=== PATIENT | female | born 1975 | race Asian ===

== ENCOUNTER → 2016-06-01 | Outpatient (CLI) | payer MEDICAID | END | disposition home or self-care (01) | LOC: PETCFH 11:57 | PROVIDERS: ATTEND Internal Medicine Hematology & Oncology | DX: C50.411 Malignant neoplasm of upper-outer quadrant of right female breast (principal) | CPT/HCPCS: 78306; A9503 ==

== ENCOUNTER 2016-06-08 09:01 | Day surgery (SDC) | payer MEDICAID ==
[~2016-06-08] VITALS: Ht 165.1 cm; Wt 67.5 kg
[~2016-06-08 09:01] MED LIST: BUPIVACAINE/PF-EPI 0.5% 1:200K ONE
[2016-06-08] MEDS ORDERED: LACTATED RINGERS 1,000 ML IV SCH (09:55)
[2016-06-08 10:04] VITALS: BP 106/69
[2016-06-08 10:04] LABS: HCG UR OBC PASS
[2016-06-08] MEDS ORDERED: SCOPOLAMINE PATCH, 1.5MG PATCH.TD72 TD ONE ×2 (10:22→10:30)
[2016-06-08] MEDS ORDERED: FENTANYL PF 100 MCG/2ML ONE ×2 (12:10→13:43)
[2016-06-08] MEDS ORDERED: MIDAZOLAM 1 MG/ML, 2ML ONE (12:10)
[2016-06-08] MEDS ORDERED: HEPARIN 1,000 UNITS/ML, 10ML ONE ×2 (12:27→13:19)
[2016-06-08] MEDS ORDERED: ONDANSETRON 2MG/ML, 2ML ONE (12:36)
[2016-06-08] MEDS ORDERED: CEFAZOLIN 1,000 MG ONE (12:36)
[2016-06-08] MEDS ORDERED: DEXAMETHASONE 4 MG/ML, 1ML ONE (12:36)
[2016-06-08] MEDS ORDERED: PROPOFOL 10 MG/ML, 20ML ONE (12:36)
[2016-06-08] MEDS ORDERED: HYDROcodone/APAP 7.5-325MG/15ML UDC PO PRN (13:00)
[2016-06-08] MEDS ORDERED: ALBUTEROL SULFATE 2.5 MG/3 ML NPPB PRN (13:00)
[2016-06-08] MEDS ORDERED: METOPROLOL 1 MG/ML, 5ML IV PRN (13:00)
[2016-06-08] MEDS ORDERED: LABETALOL 5MG/ML, 20ML IV PRN (13:00)
[2016-06-08] MEDS ORDERED: hydrALAzine 20 MG/ML, 1ML IV PRN (13:00)
[2016-06-08] MEDS ORDERED: ONDANSETRON 2MG/ML, 2ML IVPush PRN (13:00)
[2016-06-08] MEDS ORDERED: EPHEDRINE 50 MG/ML, 1ML IVPush PRN (13:00)
[2016-06-08] MEDS ORDERED: ACETAMINOPHEN 325 MG TABLET PO PRN (13:00)
[2016-06-08] MEDS ORDERED: PROMETHAZINE 25 MG/ML, 1ML IV PRN (13:00)
[2016-06-08] MEDS ORDERED: FENTANYL PF 100 MCG/2ML IV PRN (13:00)
[2016-06-08] MEDS ORDERED: MEPERIDINE/PF 25MG/0.5ML IVPush PRN (13:00)
[2016-06-08] MEDS ORDERED: HYDROcodone/APAP 7.5-325MG/15ML UDC ONE (13:43)
== END 2016-06-08 15:30 | disposition home or self-care (01) ==
LOC: OUT 09:01
PROVIDERS: ATTEND Surgery
DX: C50.411 Malignant neoplasm of upper-outer quadrant of right female breast (principal); Z90.11 Acquired absence of right breast and nipple; Z80.3 Family history of malignant neoplasm of breast
CPT/HCPCS: 36561; 77001; 81025; J0690; J1100; J1644; J2250; J2405; J2704; J3010; J7120; 76000

== ENCOUNTER → 2016-06-11 | Outpatient (CLI) | payer MEDICAID ==
[~2016-06-11] MED LIST changes: -BUPIVACAINE/PF-EPI 0.5% 1:200K ONE; +OMNIPAQUE 350 MG/ML, 100ML BOTTLE ONE
== END | disposition home or self-care (01) ==
LOC: CFH 13:46
PROVIDERS: ATTEND Internal Medicine Hematology & Oncology
DX: C50.919 Malignant neoplasm of unspecified site of unspecified female breast (principal); R91.1 Solitary pulmonary nodule
CPT/HCPCS: 71260; 74177; 93306; Q9967

== ENCOUNTER → 2016-10-06 | Outpatient (CLI) | payer MEDICAID | END | disposition home or self-care (01) | LOC: CFH 09:51 | PROVIDERS: ATTEND Internal Medicine Hematology & Oncology | DX: C50.411 Malignant neoplasm of upper-outer quadrant of right female breast (principal); R94.5 Abnormal results of liver function studies | CPT/HCPCS: 76700 ==

== ENCOUNTER → 2016-11-19 | Outpatient (CLI) | payer MEDICAID ==
[~2016-11-19] MED LIST changes: +GADOBUTROL 10 MMOL/10 ML VIAL ONE; -OMNIPAQUE 350 MG/ML, 100ML BOTTLE ONE
== END | disposition home or self-care (01) ==
LOC: CFH 10:14
PROVIDERS: ATTEND Surgery
DX: C50.919 Malignant neoplasm of unspecified site of unspecified female breast (principal); N60.02 Solitary cyst of left breast; N60.01 Solitary cyst of right breast
CPT/HCPCS: A9585; C8908

== ENCOUNTER → 2016-11-27 | Outpatient (CLI) | payer MEDICAID ==
[~2016-11-27] MED LIST changes: -GADOBUTROL 10 MMOL/10 ML VIAL ONE; +OMNIPAQUE 350 MG/ML, 75ML BOTTLE ONE
== END | disposition home or self-care (01) ==
LOC: RAD 13:31
PROVIDERS: ATTEND Internal Medicine Hematology & Oncology
DX: R91.8 Other nonspecific abnormal finding of lung field (principal); C50.411 Malignant neoplasm of upper-outer quadrant of right female breast
CPT/HCPCS: 71260; Q9967

== ENCOUNTER → 2016-12-03 | Outpatient (CLI) | payer MEDICAID | END | disposition home or self-care (01) | LOC: ROC 13:27 | PROVIDERS: ATTEND Radiology Radiation Oncology | DX: C50.911 Malignant neoplasm of unspecified site of right female breast (principal) | CPT/HCPCS: 99212; G0463 ==

== ENCOUNTER → 2016-12-31 | Outpatient (CLI) | payer MEDICAID | END | disposition home or self-care (01) | LOC: CFH 12:36 | PROVIDERS: ATTEND Internal Medicine Hematology & Oncology | DX: C50.212 Malignant neoplasm of upper-inner quadrant of left female breast (principal); C50.411 Malignant neoplasm of upper-outer quadrant of right female breast | CPT/HCPCS: 76641; G0206 ==

== ENCOUNTER → 2017-03-01 | Outpatient (CLI) | payer MEDICAID | END | disposition home or self-care (01) | LOC: ROC 10:28 | PROVIDERS: ATTEND Radiology Radiation Oncology | DX: C50.911 Malignant neoplasm of unspecified site of right female breast (principal) | CPT/HCPCS: 99213; G0463 ==

== ENCOUNTER → 2017-06-22 | Outpatient (CLI) | payer MEDICAID | END | disposition home or self-care (01) | LOC: CFH 12:10 | PROVIDERS: ATTEND Radiology Radiation Oncology | DX: N60.01 Solitary cyst of right breast (principal); N60.02 Solitary cyst of left breast; Z85.3 Personal history of malignant neoplasm of breast; Q99.8 Other specified chromosome abnormalities | CPT/HCPCS: 76377; 76642 ==

== ENCOUNTER → 2017-07-05 | Outpatient (CLI) | payer MEDICAID | END | disposition home or self-care (01) | LOC: ROC 12:56 | PROVIDERS: ATTEND Radiology Radiation Oncology | DX: C50.411 Malignant neoplasm of upper-outer quadrant of right female breast (principal) | CPT/HCPCS: 99213; G0463 ==

== ENCOUNTER → 2018-06-28 | Outpatient (CLI) | payer MEDICAID ==
[~2018-06-28] MED LIST changes: +GADOBUTROL 7.5 MMOL/7.5 ML VIAL ONE; -OMNIPAQUE 350 MG/ML, 75ML BOTTLE ONE
== END | disposition home or self-care (01) ==
LOC: CFH 08:46
PROVIDERS: ATTEND Radiology Radiation Oncology
DX: Z12.31 Encounter for screening mammogram for malignant neoplasm of breast (principal); N60.01 Solitary cyst of right breast; Z85.3 Personal history of malignant neoplasm of breast
CPT/HCPCS: 76641; 77049; 77063; 77067; A9585

== ENCOUNTER 2019-09-22 12:04 | Outpatient (CLI) | payer MEDICAID | END 2019-09-22 23:59 | disposition home or self-care (01) | LOC: CFH 12:04 | PROVIDERS: ATTEND Internal Medicine Hematology & Oncology | DX: Z12.31 Encounter for screening mammogram for malignant neoplasm of breast (principal); Z51.11 Encounter for antineoplastic chemotherapy; C50.411 Malignant neoplasm of upper-outer quadrant of right female breast | CPT/HCPCS: 76641; 77063; 77067 ==

== ENCOUNTER → 2019-10-20 | Outpatient (CLI) | payer MEDICAID | END | disposition home or self-care (01) | LOC: CFH 11:13 | PROVIDERS: ATTEND Internal Medicine Hematology & Oncology | DX: M25.561 Pain in right knee (principal); M25.562 Pain in left knee ==

== ENCOUNTER 2019-10-27 14:41 | Outpatient (CLI) | payer MEDICAID ==
[2019-10-27] MEDS ORDERED: GADOTERATE 7.5 MMOL/15 ML VIAL ONE (15:59)
== END 2019-10-27 23:59 | disposition home or self-care (01) ==
LOC: CFH 14:41
PROVIDERS: ATTEND Internal Medicine Hematology & Oncology
DX: Z51.11 Encounter for antineoplastic chemotherapy (principal); N60.02 Solitary cyst of left breast; C50.411 Malignant neoplasm of upper-outer quadrant of right female breast
CPT/HCPCS: 77049; A9575; C8908

== ENCOUNTER 2020-11-07 08:24 | Outpatient (CLI) | payer BC ==
[2020-11-07] MEDS ORDERED: GADOTERATE 10 MMOL/20 ML VIAL ONE (09:47)
== END 2020-11-07 23:59 | disposition home or self-care (01) ==
LOC: CFH 08:24
PROVIDERS: ATTEND Internal Medicine Hematology & Oncology
DX: C50.411 Malignant neoplasm of upper-outer quadrant of right female breast (principal)
CPT/HCPCS: 77049; A9575; C8937; C8908

== ENCOUNTER → 2020-12-06 | Outpatient (CLI) | payer BC | END | disposition home or self-care (01) | LOC: CFH 15:09 | PROVIDERS: ATTEND Internal Medicine Hematology & Oncology | DX: Z12.31 Encounter for screening mammogram for malignant neoplasm of breast (principal) | CPT/HCPCS: 77063; 77067 ==